=== PATIENT | male | born 1980 | race Caucasian/White ===

== ENCOUNTER 2016-12-24 07:09 | Emergency (ER) | payer SELFPAY ==
[2016-12-24 07:20] VITALS: BP 120/82
--- NOTE | 2016-12-24 07:30 | UC ---
Abdominal Pain Male HPI - HPI Summary HPI Summary: LLQ ABDOMINAL PAIN X 3 DAYS PAIN IN MODERATED , 6 OUT OF 10, SHARP , NO RADIATION OF THE PAIN, WORSE WITH MOVEMENT , BETTER BY REST, NO FEVER, CHILLS, NO NAUSEA OR VOMITING, NO DIARRHEA , NO CONSTIPATION, NO URINARY SX. - History of Current Complaint Chief Complaint: UCGI Stated Complaint: LEFT SIDE STOMACH ACHE Time Seen by Provider: 12/24/16 07:12 Hx Obtained From: Patient Onset/Duration: Gradual Onset, Lasting Days - 3, Still Present Timing: Constant Severity Initially: Moderate Severity Currently: Moderate Location: Discrete At: LLQ Radiates: No Character: Sharp Aggravating Factor(s):: Movement Alleviating Factor(s): Rest Associated Signs And Symptoms: Negative: Diaphoresis, Fever, Cough, Chest Pain, Dizzy, Back Pain, Constipation, Blood in Stool, Urinary Symptoms, Decreased Appetite, Nausea, Vomiting, Diarrhea, Penile Discharge Similar Episode/Dx As:: HX OF DIVERTICULITIS IN 2016 - Risk Factors Testicular Torsion: Negative - Allergies/Home Medications Allergies/Adverse Reactions: Allergies Allergy/AdvReac Type Severity Reaction Status Date / Time penicillin, amoxicillin Allergy Rash Uncoded 12/24/16 07:21 Home Medications: Home Medications Aspirin 220 660 mg PO ONCE PRN 12/24/16 [History] PMH/Surg Hx/FS Hx/Imm Hx GI/ History: Diverticulitis - Surgical History Surgical History: None - Family History Known Family History: Negative: Diabetes - Social History Alcohol Use: Occasionally Substance Use Type: None Smoking Status (MU): Former Smoker Amount Used/How Often: 1/2 cans/per day Review of Systems Constitutional: Negative Skin: Negative Eyes: Negative ENT: Negative Respiratory: Negative Cardiovascular: Negative Gastrointestinal: Abdominal Pain Genitourinary: Negative All Other Systems Reviewed And Are Negative: Yes Physical Exam Triage Information Reviewed: Yes Appearance: Well-Appearing, No Pain Distress, Well-Nourished Vital Signs: Initial Vital Signs Temp 98.7 F 12/24/16 07:13 Pulse 86 12/24/16 07:13 Resp 20 12/24/16 07:13 BP 120/82 12/24/16 07:13 Pulse Ox 98 12/24/16 07:13 Vital Signs Reviewed: Yes Eyes: Positive: Conjunctiva Clear ENT: Positive: Normal ENT inspection, Hearing grossly normal, Pharynx normal Neck: Positive: Supple, Nontender, No Lymphadenopathy Respiratory: Positive: Chest non-tender, Lungs clear, Normal breath sounds, No respiratory distress Cardiovascular: Positive: RRR, No Murmur, Pulses Normal Abdomen Description: Positive: Nontender, Soft. Negative: CVA Tenderness (R), CVA Tenderness (L), Distended, Guarding Bowel Sounds: Negative: Present Musculoskeletal Exam: Normal Musculoskeletal: Positive: Strength Intact, ROM Intact Neurological: Positive: Alert, Muscle Tone Normal Skin Exam: Normal Abd Pain Male Course/Dx - Differential Dx/Clinical Impression Provider Diagnoses: DIVERTICULITIS Discharge - Discharge Plan Condition: Stable Disposition: HOME Prescriptions: Ciprofloxacin TAB* [Cipro 500 MG TAB*] 500 mg PO BID #30 tab Metronidazole [Flagyl 500 MG TAB] 500 mg PO TID #30 tab Patient Education Materials: Diverticulitis (ED), Diverticulitis Diet (ED) Referrals: No Primary Care Phys,NOPCP [Primary Care Provider] - 5 Days Additional Instructions: please go to ED if having fever, chills, increase pain
== END 2016-12-24 07:38 | disposition home or self-care (01) ==
LOC: UCCORT 07:09
DX: K57.92 Diverticulitis of intestine, part unspecified, without perforation or abscess without bleeding (principal)
CPT/HCPCS: 99202; G0463

== ENCOUNTER 2018-01-13 15:04 | Emergency (ER) | payer OTHER ==
[2018-01-13 15:22] VITALS: BP 111/67
--- NOTE | 2018-01-13 15:34 | UC ---
Abdominal Pain Male HPI - HPI Summary HPI Summary: 37 yo male presents with LLQ pain since early this morning. He tells me that he has a history of diverticulitis and this feels the same. Yesterday he was working a lot outdoors and doing a lot of heavy lifting, thinks he may have aggravated his diverticulitis. He is eating and drinking as usual. Denies eating seeded food or food with nuts. He denies fever, chills, n/v/d/c, dysuria , or hx of hernia. - History of Current Complaint Chief Complaint: UCAbdominalPain Stated Complaint: LEFT SIDE PAIN Time Seen by Provider: 01/13/18 15:34 Hx Obtained From: Patient Onset/Duration: Sudden Onset Timing: Constant Severity Initially: Mild Severity Currently: Mild Pain Intensity: 4 Pain Scale Used: 0-10 Numeric Location: Discrete At: LLQ - Allergies/Home Medications Allergies/Adverse Reactions: Allergies Allergy/AdvReac Type Severity Reaction Status Date / Time penicillin, amoxicillin Allergy Rash Uncoded 01/13/18 15:22 PMH/Surg Hx/FS Hx/Imm Hx - Additional Past Medical History Additional PMH: Diverticulosis - Surgical History Surgical History: None - Family History Known Family History: Negative: Diabetes - Social History Occupation: Employed Full-time Lives: With Family Alcohol Use: Occasionally Substance Use Type: None Smoking Status (MU): Heavy Every Day Tobacco Smoker Amount Used/How Often: 1/2 cans/per day Review of Systems Constitutional: Negative Skin: Negative Respiratory: Negative Cardiovascular: Negative Gastrointestinal: Abdominal Pain Genitourinary: Negative Motor: Negative Musculoskeletal: Negative Neurological: Negative Psychological: Negative All Other Systems Reviewed And Are Negative: Yes Physical Exam - Summary Physical Exam Summary: GENERAL: NAD. WDWN. No pain distress. SKIN: No rashes, sores, lesions, or open wounds. NECK: Supple. Nontender. No lymphadenopathy. CHEST: CTAB. No r/r/w. No accessory muscle use. Breathing comfortably and in no distress. CV: RRR. Without m/r/g. Pulses intact. Cap refill <2seconds ABDOMEN: Mild TTP LLQ. Soft. No distention or guarding. No organomegaly. No CVA tenderness. Bowel sounds present. No abdominal or umbilical hernia appreciated. NEURO: Alert. PSYCH: Age appropriate behavior. Triage Information Reviewed: Yes Vital Signs: Initial Vital Signs Temp 100.2 F 01/13/18 15:17 Pulse 101 01/13/18 15:17 Resp 16 01/13/18 15:17 BP 111/67 01/13/18 15:17 Pulse Ox 98 01/13/18 15:17 Vital Signs Reviewed: Yes Male Genital Exam: Positive: No Hernia. Negative: Hernia Mass, Inguinal Tenderness, Scrotum Tenderness (R), Scrotum Tenderness (L), Testicular Tenderness (R), Testicular Tenderness (L) Abd Pain Male Course/Dx - Course Course Of Treatment: I had a long discussion with the pt regarding his pain. He does not wish to go to the ER for imaging of his abdominal pain as he has had this same pain 3 times - once positive on imaging for diverticulitis in the past and he says it always improves with the antibiotics. He did not have an appreciable hernia, but I discussed a ddx with him including strangulated hernia , bowel mass, early appendicitis, or kidney stone. Pt wished to take the antibiotics and elected to monitor his symptoms - if no imrovement or if he develops new symptoms he agreed to go to the ER. - Differential Dx/Clinical Impression Provider Diagnoses: Diverticulitis Discharge - Sign-Out/Discharge Documenting (check all that apply): Patient Departure All imaging exams completed and their final reports reviewed: No Studies - Discharge Plan Condition: Stable Disposition: HOME Prescriptions: Ciprofloxacin TAB* [Cipro 500 MG TAB*] 500 mg PO BID #14 tab metroNIDAZOLE [Flagyl 500 MG TAB] 500 mg PO TID #21 tab Patient Education Materials: Diverticulitis (ED) Referrals: No Primary Care Phys,NOPCP [Primary Care Provider] - Additional Instructions: If you develop a fever, shortness of breath, chest pain, new or worsening symptoms - please call your PCP or go to the ED. 1) If your pain does not improve or if you develop new symptoms - it is very important that you go to the ER for further evaluation - Billing Disposition and Condition Condition: STABLE Disposition: Home
== END 2018-01-13 15:56 | disposition home or self-care (01) ==
LOC: UCCORT 15:04
DX: K57.92 Diverticulitis of intestine, part unspecified, without perforation or abscess without bleeding (principal); F17.210 Nicotine dependence, cigarettes, uncomplicated; Z88.0 Allergy status to penicillin
CPT/HCPCS: 99211; G0463

== ENCOUNTER 2018-12-04 15:40 | Emergency (ER) | payer MEDICAID, OTHER ==
[2018-12-04 16:12] VITALS: BP 124/80
--- NOTE | 2018-12-04 16:37 | UC ---
Abdominal Pain Male HPI - HPI Summary HPI Summary: 38 year old male presents with complaint of diverticulitis flair. He was in his usual state of health until two days ago when he awoke with left lower abdominal pain. Denies associated fever, chills, nausea, vomiting, diarrhea nor hematochezia. He has had had diverticulitis four times in the past, once requiring admission and percutaneous drainage. He states he came in early for treatment before symptoms progressed. - History of Current Complaint Chief Complaint: UCAbdominalPain Stated Complaint: LEFT SIDE ABD PAIN-HX OF DIVERTICULITIS Time Seen by Provider: 12/04/18 16:07 Hx Obtained From: Patient Onset/Duration: Gradual Onset Pain Intensity: 2 Location: Discrete At: LLQ Character: Aching Associated Signs And Symptoms: Positive: Negative Similar Episode/Dx As:: previous episodes of diverticulitis - Risk Factors Testicular Torsion: Negative Cardiac Risk Factors: Negative - Allergies/Home Medications Allergies/Adverse Reactions: Allergies Allergy/AdvReac Type Severity Reaction Status Date / Time penicillin, amoxicillin Allergy Rash Uncoded 12/04/18 16:10 Home Medications: Home Medications Ibuprofen TAB* [Advil TAB*] 400 mg PO Q6H PRN 12/04/18 [History Confirmed ] PMH/Surg Hx/FS Hx/Imm Hx Previously Healthy: Yes - Surgical History Surgical History: None - Family History Known Family History: Negative: Diabetes Family History: non-contributory - Social History Occupation: Employed Full-time Alcohol Use: Occasionally Substance Use Type: None Smoking Status (MU): Heavy Every Day Tobacco Smoker Type: Cigarettes Amount Used/How Often: 1/2 PPD Review of Systems All Other Systems Reviewed And Are Negative: Yes Constitutional: Negative: Fever, Chills, Fatigue Skin: Negative: Rash Eyes: Negative: Drainage, Eye Redness ENT: Negative: Sore Throat Respiratory: Negative: Shortness Of Breath, Cough Cardiovascular: Negative: Palpitations, Chest Pain Gastrointestinal: Positive: Abdominal Pain. Negative: Vomiting, Diarrhea, Nausea Genitourinary: Negative: Dysuria, Frequency, Urgency Motor: Negative: Decreased ROM, Weakness Neurovascular: Negative: Decreased Sensation Musculoskeletal: Negative: Arthralgia, Decreased ROM Neurological: Negative: Headache, Weakness, Numbness Is Patient Immunocompromised?: No Physical Exam Triage Information Reviewed: Yes Appearance: Well-Appearing, No Pain Distress, Well-Nourished Vital Signs: Initial Vital Signs Temp 98.1 F 12/04/18 16:08 Pulse 86 12/04/18 16:08 Resp 15 12/04/18 16:08 BP 124/80 12/04/18 16:08 Pulse Ox 99 12/04/18 16:08 Vital Signs Reviewed: Yes ENT: Positive: Normal ENT inspection Neck: Positive: Supple, Nontender, No Lymphadenopathy Respiratory: Positive: Chest non-tender, Lungs clear, Normal breath sounds Cardiovascular: Positive: RRR, No Murmur Abdomen Description: Positive: No Organomegaly, Soft, Other: - mild tenderness to deep palpation LLQ. Negative: CVA Tenderness (R), CVA Tenderness (L), Distended, Guarding, Pulsatile Mass Bowel Sounds: Positive: Present Musculoskeletal: Positive: ROM Intact Neurological: Positive: Alert Skin: Negative: Rashes Abd Pain Male Course/Dx - Course Course Of Treatment: Symptoms consistent with early diverticulitis. Since he has a PNC allergy and no prescription insurance, will treat with Bactrim DS 1 po bid and metronidazole 500mg tid x 10 days. - Differential Dx/Clinical Impression Differential Diagnosis/HQI/PQRI: Constipation Provider Diagnosis: Diverticulitis Discharge - Sign-Out/Discharge Documenting (check all that apply): Patient Departure All imaging exams completed and their final reports reviewed: No Studies - Discharge Plan Condition: Stable Disposition: HOME Prescriptions: metroNIDAZOLE * [Flagyl] 500 mg PO Q8H 10 Days #30 tablet Sulfamethox/Trimethoprim DS* [Bactrim DS 800/160 TAB*] 1 tab PO BID 10 Days #20 tab Patient Education Materials: Diverticulitis (ED) Referrals: No Primary Care Phys,NOPCP [Primary Care Provider] - Additional Instructions: Drink plenty of fluids, ibuprofen over the counter as needed for pain. Take antibiotics as prescribed and complete all doses. Avoid alcohol while on antibiotics. Follow-up with your Primary Care Physician. If symptoms worsen, fever or bloody diarrhea develop, report to the Emergency Department. - Billing Disposition and Condition Condition: STABLE Disposition: Home
== END 2018-12-04 16:49 | disposition home or self-care (01) ==
LOC: UCCORT 15:40
DX: K57.92 Diverticulitis of intestine, part unspecified, without perforation or abscess without bleeding (principal); Z87.19 Personal history of other diseases of the digestive system; F17.210 Nicotine dependence, cigarettes, uncomplicated
CPT/HCPCS: 99212; G0463